=== PATIENT | female | born 1990 | race Caucasian/White ===

== ENCOUNTER 2018-03-26 21:28 | Emergency (ER) | payer BC ==
[~2018-03-26] VITALS: Ht 172.7 cm; Wt 85.0 kg
[2018-03-26 21:35] VITALS: BP 123/48
[2018-03-26] MEDS ORDERED: SODIUM CHLORIDE 0.9% 1,000ML IVBOLUS ONE (22:00)
[2018-03-26] MEDS ORDERED: ACETAMINOPHEN 325 MG TABLET PO ONE (22:00)
[2018-03-26 22:20] LABS: BASOPHILS # (AUTO) 0.04 x10^3/uL (0-0.1); BASOPHILS % (AUTO) 0 % (0-1); EOSINOPHILS # (AUTO) 0.02 x10^3/uL (0-0.4); EOSINOPHILS % (AUTO) 0 % (1-7); LYMPHOCYTES # (AUTO) 1.86 x10^3/uL (1-3.4); LYMPHOCYTES % (AUTO) 18 % (22-44); MD NO; MEAN CORPUSCULAR HGB CONC 34.7 g/dL (32.4-35.8); MEAN CORPUSCULAR VOLUME 92.3 fL (80-100); MEAN PLATELET VOLUME 7.6 fL (7.4-10.4); MONOCYTES # (AUTO) 0.47 x10^3/uL (0.2-0.8); MONOCYTES % (AUTO) 5 % (2-9); NEUTROPHILS # (AUTO) 7.96 x10^3/uL (1.8-6.8); NEUTROPHILS % (AUTO) 77 % (42-75); PLATELET COUNT 211 x10^3/uL (130-400); RED BLOOD COUNT 4.58 x10^6/uL (3.82-5.3); RED CELL DISTRIBUTION WIDTH 13.6 % (9.6-15.2)
[2018-03-26 22:33] LABS: ALANINE AMINOTRANSFERASE 18 U/L (12-78); ALBUMIN 3.3 g/dL (3.4-5.0); ANION GAP 9 mmol/L (5-15); CALCIUM 8.2 mg/dL (8.5-10.1); CHLORIDE 106 mmol/L (98-107); CREATININE 0.76 mg/dL (0.55-1.02)
[2018-03-26 22:35] LABS: ALKALINE PHOSPHATASE 49 U/L (45-117); BILIRUBIN,TOTAL 0.2 mg/dL (0.2-1.0); TOTAL PROTEIN 6.6 g/dL (6.4-8.2)
[2018-03-26] MEDS ORDERED: ACETAMINOPHEN 500 MG TABLET ONE (22:47)
== END 2018-03-27 01:15 | disposition home or self-care (01) ==
LOC: ED 23:59
DX: R51 Headache (principal); Z59.0 Homelessness; Z87.891 Personal history of nicotine dependence
CPT/HCPCS: 36415; 80053; 85025; 99285; J7030

== ENCOUNTER 2018-05-25 09:56 | Observation (INO) | payer BC ==
[~2018-05-25] VITALS: Ht 170.2 cm; Wt 94.0 kg
[2018-05-25 10:02] VITALS: BP 108/56
[2018-05-25 11:21] LABS: AMPHETAMINE SCREEN, URINE Negative (Negative); BARBITURATE SCREEN, URINE Negative (Negative); BENZODIAZEPINE SCREEN, URINE Negative (Negative); CANNABINOID SCREEN, URINE Positive (Negative); COCAINE SCREEN, URINE Negative (Negative); METHADONE SCREEN, URINE Negative (Negative); OPIATE SCREEN, URINE Negative (Negative)
[2018-05-25 11:44] LABS: BASOPHILS # (AUTO) 0.03 x10^3/uL (0-0.1); BASOPHILS % (AUTO) 1 % (0-1); EOSINOPHILS # (AUTO) 0.05 x10^3/uL (0-0.4); EOSINOPHILS % (AUTO) 1 % (1-7); LYMPHOCYTES # (AUTO) 1.89 x10^3/uL (1-3.4); LYMPHOCYTES % (AUTO) 31 % (22-44); MD NO; MEAN CORPUSCULAR HEMOGLOBIN 31.7 pg (27.0-34.8); MEAN CORPUSCULAR HGB CONC 33.9 g/dL (32.4-35.8); MEAN CORPUSCULAR VOLUME 93.6 fL (80-100); MEAN PLATELET VOLUME 7.7 fL (7.4-10.4); MONOCYTES # (AUTO) 0.43 x10^3/uL (0.2-0.8); MONOCYTES % (AUTO) 7 % (2-9); NEUTROPHILS # (AUTO) 3.76 x10^3/uL (1.8-6.8); NEUTROPHILS % (AUTO) 61 % (42-75); PLATELET COUNT 184 x10^3/uL (130-400); RED BLOOD COUNT 4.27 x10^6/uL (3.82-5.3)
[2018-05-25 11:55] LABS: INTERNATIONAL NORMALIZED RATIO 0.91 (0.93-1.1); PROTHROMBIN TIME 9.7 Seconds (9.6-11.5)
[2018-05-25 14:41] VITALS: BP 101/55
== END 2018-05-25 15:03 | disposition home or self-care (01) ==
LOC: LDOP 09:56 → LDIP 11:08
PROVIDERS: ADMIT Student in an Organized Health Care Education/Training Program; ATTEND Student in an Organized Health Care Education/Training Program
DX: O99.89 Other specified diseases and conditions complicating pregnancy, childbirth and the puerperium (principal); M54.9 Dorsalgia, unspecified; M25.551 Pain in right hip; Z3A.27 27 weeks gestation of pregnancy
CPT/HCPCS: 36415; 59025; 76815; 80307; 85025; 85460; 85610; 85730; 86850; 86900; 99211; G0378; J2790; G0463

== ENCOUNTER 2018-07-12 22:20 | Outpatient (CLI) | payer BC ==
[~2018-07-12] VITALS: Ht 170.2 cm; Wt 99.0 kg
[2018-07-12 22:45] LABS: MICROSCOPIC NOT IND
[2018-07-12] MEDS ORDERED: ACETAMINOPHEN 325 MG TABLET ONE (22:51)
[2018-07-12 22:58] LABS: AMPHETAMINE SCREEN, URINE Negative (Negative); BARBITURATE SCREEN, URINE Negative (Negative); BENZODIAZEPINE SCREEN, URINE Negative (Negative); CANNABINOID SCREEN, URINE Positive (Negative); COCAINE SCREEN, URINE Negative (Negative); METHADONE SCREEN, URINE Negative (Negative); OPIATE SCREEN, URINE Negative (Negative)
== END 2018-07-12 23:11 | disposition home or self-care (01) ==
LOC: LDOP 22:20
PROVIDERS: ATTEND Student in an Organized Health Care Education/Training Program
DX: O26.893 Other specified pregnancy related conditions, third trimester (principal); R10.30 Lower abdominal pain, unspecified; Z3A.37 37 weeks gestation of pregnancy
CPT/HCPCS: 59025; 80307; 81003; 87086; 99211; G0463

== ENCOUNTER 2018-08-19 11:22 | Inpatient (IN) | payer BC ==
[~2018-08-19] VITALS: Ht 172.7 cm; Wt 107.5 kg
[2018-08-22 21:27] VITALS: BP 94/61
[2018-08-22] MEDS ORDERED: D5%-LACTATED RINGERS 1,000 ML IV SCH (21:54)
[2018-08-22] MEDS ORDERED: OXYTOCIN 30U/ 0.9% NaCL 500ML 500 ML IV ONE (21:54)
[2018-08-22] MEDS ORDERED: ALUMINUM/MAG/SIMETHICONE 30 ML UDC PO PRN (22:00)
[2018-08-22] MEDS ORDERED: TERBUTALINE 1 MG/ML, 1ML IVPush PRN ×2 (22:00)
[2018-08-22] MEDS ORDERED: ONDANSETRON 2MG/ML, 2ML IVPush PRN (22:00)
[2018-08-22] MEDS ORDERED: METOCLOPRAMIDE 5 MG/ML, 2ML IVPush PRN (22:00)
[2018-08-22] MEDS ORDERED: SODIUM CITRATE/CITRIC ACID 15 ML UDC PO PRN (22:00)
[2018-08-22] MEDS ORDERED: PENICILLIN GK 5,000,000 UNITS in DEXTROSE 5% 100 ML IVPB ONE (22:00)
[2018-08-22] MEDS ORDERED: FENTANYL PF 100 MCG/2ML IVPush PRN (22:00)
[2018-08-22] MEDS ORDERED: CALCIUM CARBONATE 500 MG TAB.CHEW PO PRN (22:00)
[2018-08-22] MEDS ORDERED: FENTANYL PF 100 MCG/2ML IV PRN (22:00)
[2018-08-22 22:14] LABS: MICROSCOPIC INDICATED
[2018-08-22] MEDS ORDERED: OXYTOCIN 30U/ 0.9% NaCL 500ML 500 ML ONE (22:20)
[2018-08-22] MEDS ORDERED: LIDOCAINE 1%, 10ML ONE (22:20)
[2018-08-22] MEDS ORDERED: NEWBORN KIT ONE (22:21)
[2018-08-22] MEDS ORDERED: MISOPROSTOL 25 MCG TABLET ONE (22:21)
[2018-08-22 22:23] LABS: BASOPHILS # (AUTO) 0.04 x10^3/uL (0-0.1); BASOPHILS % (AUTO) 1 % (0-1); EOSINOPHILS # (AUTO) 0.11 x10^3/uL (0-0.4); EOSINOPHILS % (AUTO) 1 % (1-7); LYMPHOCYTES # (AUTO) 1.98 x10^3/uL (1-3.4); LYMPHOCYTES % (AUTO) 22 % (22-44); MD NO; MEAN CORPUSCULAR HEMOGLOBIN 32.2 pg (27.0-34.8); MEAN CORPUSCULAR HGB CONC 34.4 g/dL (32.4-35.8); MEAN CORPUSCULAR VOLUME 93.5 fL (80-100); MEAN PLATELET VOLUME 7.9 fL (7.4-10.4); MONOCYTES # (AUTO) 0.47 x10^3/uL (0.2-0.8); MONOCYTES % (AUTO) 5 % (2-9); NEUTROPHILS # (AUTO) 6.36 x10^3/uL (1.8-6.8); NEUTROPHILS % (AUTO) 71 % (42-75); PLATELET COUNT 195 x10^3/uL (130-400); RED BLOOD COUNT 4.46 x10^6/uL (3.82-5.3); RED CELL DISTRIBUTION WIDTH 13.4 % (9.6-15.2)
[2018-08-22 22:27] LABS: AMPHETAMINE SCREEN, URINE Negative (Negative); BARBITURATE SCREEN, URINE Negative (Negative); BENZODIAZEPINE SCREEN, URINE Negative (Negative); CANNABINOID SCREEN, URINE Positive (Negative); COCAINE SCREEN, URINE Negative (Negative); METHADONE SCREEN, URINE Negative (Negative); OPIATE SCREEN, URINE Negative (Negative)
[2018-08-22] MEDS: LACTATED RINGERS 1,000 ML IV SCH (22:28)
[2018-08-22] MEDS: MISOPROSTOL 25 MCG TABLET VG PRN (22:29)
[2018-08-23] MEDS ORDERED: MISOPROSTOL 25 MCG TABLET ONE (02:31)
[2018-08-23] MEDS: PENICILLIN GK 2,500,000 UNITS in DEXTROSE 5% 100 ML IVPB SCH ×6 (02:36→18:09)
[2018-08-23] MEDS: MISOPROSTOL 25 MCG TABLET VG PRN (02:37)
[2018-08-23] MEDS ORDERED: ONDANSETRON 2MG/ML, 2ML ONE ×2 (05:28→10:34)
[2018-08-23] MEDS ORDERED: OXYTOCIN 30U/ 0.9% NaCL 500ML 500 ML IV PRN (06:27)
[2018-08-23] MEDS ORDERED: METOCLOPRAMIDE 5 MG/ML, 2ML ONE ×3 (07:36→22:07)
[2018-08-23] MEDS ORDERED: SIMETHICONE 80 MG CHEW TAB ONE (07:36)
[2018-08-23] MEDS: SIMETHICONE 80 MG CHEW TAB PO PRN (07:49)
[2018-08-23] MEDS ORDERED: SIMETHICONE 125 MG CHEW TAB PO PRN (08:00)
[2018-08-23] MEDS ORDERED: DIPHENHYDRAMINE 50 MG/ML, 1ML ONE (08:42)
[2018-08-23] MEDS ORDERED: DIPHENHYDRAMINE 50 MG/ML, 1ML IVPush PRN ×2 (09:00→20:00)
[2018-08-23] MEDS ORDERED: PROMETHAZINE 25 MG/ML, 1ML IM PRN (09:00)
[2018-08-23] MEDS ORDERED: SCOPOLAMINE PATCH, 1.5MG PATCH.TD72 TD ONE (09:00)
[2018-08-23] MEDS: LACTATED RINGERS 1,000 ML IV SCH ×4 (09:37→23:47)
[2018-08-23] MEDS ORDERED: ONDANSETRON 2MG/ML, 2ML IVPush PRN ×2 (11:00→20:00)
[2018-08-23] MEDS ORDERED: FENTANYL/BUPIV./NS/PF 250 ML EPIDCONT SCH ×2 (14:29→19:59)
[2018-08-23] MEDS ORDERED: BUPIVACAINE 0.25% ONE (15:38)
[2018-08-23] MEDS ORDERED: FENTANYL/BUPIV./NS/PF 250 ML EPIDCONT ONE (15:39)
[2018-08-23] MEDS ORDERED: LACTATED RINGERS 1,000 ML IV SCH (19:59)
[2018-08-23] MEDS ORDERED: EPHEDRINE 50 MG/ML, 1ML IVPush PRN (20:00)
[2018-08-23] MEDS ORDERED: NALOXONE 0.4 MG/ML, 1ML IVPush PRN (20:00)
[2018-08-23] MEDS ORDERED: LACTATED RINGERS 1,000 ML IVBOLUS PRN (20:00)
[2018-08-23] MEDS ORDERED: LACTATED RINGERS 1,000 ML INTUTE SCH (21:30)
[2018-08-23] MEDS ORDERED: LACTATED RINGERS 1,000 ML INTUTE PRN (21:30)
[2018-08-23] MEDS ORDERED: TERBUTALINE 1 MG/ML, 1ML ONE (21:57)
[2018-08-23] MEDS ORDERED: SODIUM CITRATE/CITRIC ACID 15 ML UDC ONE ×2 (22:01→22:06)
[2018-08-23] MEDS ORDERED: OXYTOCIN 10 UNITS/ML, 1ML ONE (22:22)
[2018-08-23] MEDS ORDERED: LIDOCAINE-MPF 2% ,5ML ONE (22:22)
[2018-08-23] MEDS ORDERED: CEFAZOLIN 1,000 MG ONE (22:22)
[2018-08-23] MEDS ORDERED: KETOROLAC 30 MG/1 ML ONE (22:22)
[2018-08-23] MEDS ORDERED: METOCLOPRAMIDE 5 MG/ML, 2ML IV ONE (22:30)
[2018-08-23] MEDS ORDERED: SODIUM CITRATE/CITRIC ACID 15 ML UDC PO ONE (22:30)
[2018-08-24] MEDS ORDERED: MEASLES,MUMPS&RUBELLA VACC/PF 0.5 ML SQ-VACC PRN
[2018-08-24] MEDS ORDERED: OXYcodone/APAP 5/325MG TABLET PO PRN
[2018-08-24] MEDS ORDERED: DEXAMETHASONE 4 MG/ML, 1ML IV PRN
[2018-08-24] MEDS ORDERED: CALCIUM CARBONATE 500 MG TAB.CHEW PO PRN
[2018-08-24] MEDS ORDERED: FENTANYL PF 100 MCG/2ML IV PRN
[2018-08-24] MEDS ORDERED: RHOGAM FROM BLOOD BANK 1 NOTE EA IM/IV ONE
[2018-08-24] MEDS ORDERED: MEPERIDINE/PF 25MG/0.5ML IVPush PRN
[2018-08-24] MEDS ORDERED: EPHEDRINE 50 MG/ML, 1ML IVPush PRN
[2018-08-24] MEDS ORDERED: MISOPROSTOL 200 MCG TABLET PR PRN
[2018-08-24] MEDS ORDERED: SIMETHICONE 80 MG CHEW TAB PO PRN
[2018-08-24] MEDS ORDERED: OXYcodone 5 MG/5 ML ORAL.SOL UDC PO PRN
[2018-08-24] MEDS ORDERED: ONDANSETRON 2MG/ML, 2ML IV PRN ×2
[2018-08-24] MEDS ORDERED: DIPHENHYDRAMINE 50 MG/ML, 1ML IVPush PRN
[2018-08-24] MEDS ORDERED: DIPH,PERTUSS(ACELL),TET VAC/PF NC IM-VACC PRN
[2018-08-24] MEDS ORDERED: MORPHINE SULFATE 4 MG/ML, 1ML IVPush PRN ×2
[2018-08-24] MEDS: OXYTOCIN 30U/ 0.9% NaCL 500ML 500 ML IV SCH ×3 (00:30→19:47)
[2018-08-24] MEDS: LACTATED RINGERS 1,000 ML IV SCH ×6 (00:30→23:47)
[2018-08-24] MEDS ORDERED: OXYcodone IR 5MG TABLET ONE (00:58)
[2018-08-24] MEDS: OXYcodone IR 5MG TABLET PO PRN ×4 (00:59→20:05)
[2018-08-24 01:30] VITALS: BP 123/74
[2018-08-24 05:30] VITALS: BP 108/63
[2018-08-24] MEDS ORDERED: KETOROLAC 30 MG/1 ML ONE ×2 (05:36→11:39)
[2018-08-24 07:20] LABS: BASOPHILS # (AUTO) 0.05 x10^3/uL (0-0.1); BASOPHILS % (AUTO) 0 % (0-1); EOSINOPHILS % (AUTO) 0 % (1-7); LYMPHOCYTES # (AUTO) 1.37 x10^3/uL (1-3.4); LYMPHOCYTES % (AUTO) 11 % (22-44); MD NO; MEAN CORPUSCULAR HEMOGLOBIN 31.4 pg (27.0-34.8); MEAN CORPUSCULAR HGB CONC 33.5 g/dL (32.4-35.8); MEAN CORPUSCULAR VOLUME 93.6 fL (80-100); MEAN PLATELET VOLUME 8.1 fL (7.4-10.4); MONOCYTES # (AUTO) 0.59 x10^3/uL (0.2-0.8); MONOCYTES % (AUTO) 5 % (2-9); NEUTROPHILS # (AUTO) 10.38 x10^3/uL (1.8-6.8); NEUTROPHILS % (AUTO) 84 % (42-75); PLATELET COUNT 158 x10^3/uL (130-400); RED BLOOD COUNT 4.17 x10^6/uL (3.82-5.3); RED CELL DISTRIBUTION WIDTH 13.1 % (9.6-15.2)
[2018-08-24 07:30] VITALS: BP 113/65
[2018-08-24] MEDS: PRENATAL VIT/IRON/FA 1 EACH TABLET PO SCH (09:00)
[2018-08-24] MEDS: KETOROLAC 30 MG/1 ML IV SCH ×2 (11:56→18:04)
[2018-08-24 12:00] VITALS: BP 109/66
[2018-08-24 16:24] VITALS: BP 109/68
[2018-08-24 20:00] VITALS: BP 114/72
[2018-08-24] MEDS: DOCUSATE 100 MG CAPSULE PO PRN (20:05)
[2018-08-25] MEDS: KETOROLAC 30 MG/1 ML IV SCH ×4 (00:04→18:17)
[2018-08-25] MEDS ORDERED: KETOROLAC 30 MG/1 ML IV SCH (05:30)
[2018-08-25] MEDS: LACTATED RINGERS 1,000 ML IV SCH (05:47)
[2018-08-25] MEDS: OXYTOCIN 30U/ 0.9% NaCL 500ML 500 ML IV SCH (05:47)
[2018-08-25 08:20] VITALS: BP 114/62
[2018-08-25] MEDS: DOCUSATE 100 MG CAPSULE PO PRN (08:20)
[2018-08-25] MEDS: OXYcodone IR 5MG TABLET PO PRN (08:21)
[2018-08-25] MEDS: PRENATAL VIT/IRON/FA 1 EACH TABLET PO SCH (09:00)
[2018-08-25 21:30] VITALS: BP 115/70
[2018-08-25] MEDS: SIMETHICONE 80 MG CHEW TAB PO PRN (22:42)
[2018-08-26] MEDS: DOCUSATE 100 MG CAPSULE PO PRN (07:40)
[2018-08-26] MEDS: IBUPROFEN 600 MG TABLET PO PRN ×2 (07:40→13:57)
[2018-08-26] MEDS: PRENATAL VIT/IRON/FA 1 EACH TABLET PO SCH (07:40)
[2018-08-26 08:25] VITALS: BP 122/69
[2018-08-26] MEDS ORDERED: DOCU-131 PO (13:24)
[2018-08-26] MEDS ORDERED: IBUP-1222 PO (13:25)
[2018-08-26] MEDS ORDERED: OXYC-302 PO (13:25)
== END 2018-08-26 14:50 | disposition home or self-care (01) | DRG 788 ==
LOC: LDIP 08-22 21:04 → 2NW 08-24 01:02
PROVIDERS: ADMIT Student in an Organized Health Care Education/Training Program; ATTEND Student in an Organized Health Care Education/Training Program
PROC: 10D00Z1 Extraction of Products of Conception, Low, Open Approach (ICD-10-PCS; principal; 2018-08-23)
PROC: 3E0P7VZ Introduction of Hormone into Female Reproductive, Via Natural or Artificial Opening (ICD-10-PCS; 2018-08-23)
PROC: 0U7C7ZZ Dilation of Cervix, Via Natural or Artificial Opening (ICD-10-PCS; 2018-08-23)
PROC: 10H07YZ Insertion of Other Device into Products of Conception, Via Natural or Artificial Opening (ICD-10-PCS; 2018-08-23)
PROC: 10907ZC Drainage of Amniotic Fluid, Therapeutic from Products of Conception, Via Natural or Artificial Opening (ICD-10-PCS; 2018-08-23)
PROC: 3E0334Z Introduction of Serum, Toxoid and Vaccine into Peripheral Vein, Percutaneous Approach (ICD-10-PCS; 2018-08-24)
DX: O26.893 Other specified pregnancy related conditions, third trimester (principal); O69.81X0 Labor and delivery complicated by cord around neck, without compression, not applicable or unspecified; O99.344 Other mental disorders complicating childbirth; F32.9 Major depressive disorder, single episode, unspecified; O62.0 Primary inadequate contractions; F12.90 Cannabis use, unspecified, uncomplicated; O76 Abnormality in fetal heart rate and rhythm complicating labor and delivery; Z37.0 Single live birth; Z3A.40 40 weeks gestation of pregnancy; Z82.49 Family history of ischemic heart disease and other diseases of the circulatory system; Z83.3 Family history of diabetes mellitus; Z87.891 Personal history of nicotine dependence; Z90.49 Acquired absence of other specified parts of digestive tract; Z67.11 Type A blood, Rh negative
CPT/HCPCS: 36415; J2790; J3490; J7121; 80307; 81001; 82803; 85025; 85461; 86850; 86900; G0378; J0690; J1885; J2405; J2540; J1200; J2590; J2765; J3010; J7120

== ENCOUNTER 2020-06-22 06:00 | Day surgery (SDC) | payer OTHER ==
[~2020-06-22] VITALS: Ht 170.2 cm; Wt 90.9 kg
[~2020-06-22 06:00] MED LIST: DOCU-131 PO; IBUP-1222 PO; OXYC1TAB14 PO
[2020-06-22] MEDS ORDERED: CHLORHEXIDINE 15 ML UDC MM ONE (07:00)
[2020-06-22 07:08] LABS: HCG UR SG 1.016 (1.003-1.030)
[2020-06-22 07:09] VITALS: BP 110/71
[2020-06-22] MEDS ORDERED: LACTATED RINGERS 1,000 ML IV SCH (07:30)
[2020-06-22] MEDS ORDERED: FLUO20CA23 PO (07:49)
[2020-06-22] MEDS ORDERED: FENTANYL PF 250 MCG/5ML ONE (08:45)
[2020-06-22] MEDS ORDERED: MIDAZOLAM 1 MG/ML, 2ML ONE (08:45)
[2020-06-22] MEDS ORDERED: HALOPERIDOL 5 MG/ML IV PRN (09:30)
[2020-06-22] MEDS ORDERED: LABETALOL 5MG/ML, 20ML IV PRN (09:30)
[2020-06-22] MEDS ORDERED: ACETAMINOPHEN 325 MG TABLET PO PRN (09:30)
[2020-06-22] MEDS ORDERED: PROMETHAZINE 25 MG/ML, 1ML IVPush PRN (09:30)
[2020-06-22] MEDS ORDERED: hydrALAzine 20 MG/ML, 1ML IV PRN (09:30)
[2020-06-22] MEDS ORDERED: morphine SULFATE 10 MG/ML, 1ML IVPush PRN (09:30)
[2020-06-22] MEDS ORDERED: MEPERIDINE/PF 25MG/0.5ML IVPush PRN (09:30)
[2020-06-22] MEDS ORDERED: DEXAMETHASONE 4 MG/ML, 1ML ONE (09:40)
[2020-06-22] MEDS ORDERED: ONDANSETRON 2MG/ML, 2ML ONE (09:40)
[2020-06-22] MEDS ORDERED: PROPOFOL 10 MG/ML, 20ML ONE (09:40)
[2020-06-22] MEDS ORDERED: CEFAZOLIN 1,000 MG ONE (09:40)
[2020-06-22] MEDS ORDERED: FENTANYL PF 100 MCG/2ML ONE (10:07)
[2020-06-22] MEDS: FENTANYL PF 100 MCG/2ML IV PRN ×2 (10:10→10:20)
[2020-06-22] MEDS: OXYcodone/APAP 5/325MG TABLET PO PRN ×2 (10:20→11:00)
[2020-06-22] MEDS ORDERED: HYDROmorphone 1 MG/ML, 1ML INJ ONE (10:30)
[2020-06-22] MEDS: HYDROmorphone 1 MG/ML, 1ML INJ IVPush PRN ×3 (10:40→11:10)
[2020-06-22] MEDS ORDERED: OXYcodone 5 MG/5 ML ORAL.SOL UDC ONE (10:46)
== END 2020-06-22 12:43 | disposition home or self-care (01) ==
LOC: OUT 06:00
PROVIDERS: ATTEND Orthopaedic Surgery
DX: S82.851A Displaced trimalleolar fracture of right lower leg, initial encounter for closed fracture (principal); F32.9 Major depressive disorder, single episode, unspecified; G89.18 Other acute postprocedural pain; Z20.822 Contact with and (suspected) exposure to COVID-19; Z79.891 Long term (current) use of opiate analgesic; Z79.899 Other long term (current) drug therapy; X50.1XXA Overexertion from prolonged static or awkward postures, initial encounter; Y93.89 Activity, other specified; Y92.89 Other specified places as the place of occurrence of the external cause; Y99.0 Civilian activity done for income or pay
CPT/HCPCS: 20690; 27818; 64445; 64447; 73600; 81025; 87635; C1713; J0690; J1100; J1170; J2250; J2405; J2704; J3010; J7120; 76000